=== PATIENT | male | born 1965 | race African-American/Black ===

== ENCOUNTER 2016-11-11 01:16 | Emergency (ER) | payer OTHER ==
[2016-11-11 02:22] LABS: Hematocrit 37 % (42-52); Hemoglobin 12.1 g/dl (14.0-18.0); Mean Corpuscular HGB Conc 33 g/dl (31-36); Mean Corpuscular Hemoglobin 30 pg (27-31); Mean Corpuscular Volume 91 fL (80-94); Mean Platelet Volume 8 um3 (7.4-10.4); Red Blood Count 4.06 10^6/ul (4.0-5.4); Red Cell Distribution Width 14 % (10.5-15); White Blood Count 11.7 10^3/ul (3.5-10.8)
[2016-11-11 02:34] LABS: Albumin 3.5 g/dL (3.2-5.2); BUN/Creatinine Ratio 14.4 (8-20); C Reactive Protein 244.52 mg/L (< 5.00); Calcium 8.9 mg/dL (8.6-10.3); EGFR African American 104.9 (>60); EGFR Non-African American 81.6 (>60); Globulin 4.4 g/dL (2-4); Potassium 3.6 mmol/L (3.5-5.0); Total Bilirubin 0.8 mg/dL (0.2-1.0); Total Protein 7.9 g/dL (6.4-8.9)
--- NOTE | 2016-11-11 02:53 | ED ---
Andrey Philippe Alok, scribed for Deo Ivey MD on 11/11/16 at 0217 . Lower Extremity - HPI Summary HPI Summary: 51 y/o male presents to the ED with edema in his RLE. Pt states that his RLE condition began as just erythema last week while running and has progressed to edema since. Pt report states he was given the antibiotics Bactrim and Keflex 5 days ago with no alleviation. Pt denies experiencing any scratches to his RLE and provides no other PMHx at this time. - History of Current Complaint Chief Complaint: EDExtremityLower Stated Complaint: POSS RIGHT LEG INFECTION Time Seen by Provider: 11/11/16 01:42 Hx Obtained From: Patient Onset of Pain: Days Onset/Duration: Worse Since - Bactrim and Keflex 5 days ago Severity Initially: Moderate Severity Currently: Moderate Pain Intensity: 10 Pain Scale Used: 0-10 Numeric Timing: Constant, Lasting Days Location: Is Discrete @ - RLE Associated Signs And Symptoms: Positive: Swelling, Redness Alleviating Factor(s): Nothing - Allergies/Home Medications Allergies/Adverse Reactions: Allergies Allergy/AdvReac Type Severity Reaction Status Date / Time Aspirin Allergy Rash Verified 11/11/16 02:20 Penicillins [PCN] Allergy Rash Verified 11/11/16 01:25 Home Medications: Home Medications Aripiprazole [Abilify] 5 mg PO BEDTIME 11/11/16 [History Confirmed 11/11/16] Citalopram Hydrobromide [Celexa] 20 mg PO BEDTIME 11/11/16 [History Confirmed ] Furosemide [Lasix] 20 mg PO TID 11/11/16 [History Confirmed 11/11/16] HydrOXYzine PAMOATE* [Vistaril CAP*] 100 mg PO BEDTIME 11/11/16 [History Confirmed 11/11/16] Lisinopril [Lisinopril 40 MG-] 40 mg PO DAILY 11/11/16 [History Confirmed ] Omeprazole [Prilosec] 20 mg PO DAILY 11/11/16 [History Confirmed 11/11/16] PMH/Surg Hx/FS Hx/Imm Hx Cardiovascular History: Reports: Hx Hypercholesterolemia, Hx Hypertension Respiratory History: Reports: Hx Asthma Musculoskeletal History: Reports: Hx Arthritis, Hx Gout, Hx Tendonitis Infectious Disease History: No Infectious Disease History: Denies: Traveled Outside the [place] in Last 30 Days - Family History Known Family History: Positive: Hypertension - Social History Lives: Snf - Inmate Review of Systems Negative: Fever Positive: Edema - RLE Positive: Other - Erythema RLE All Other Systems Reviewed And Are Negative: Yes Physical Exam Triage Information Reviewed: Yes Vital Signs On Initial Exam: Initial Vitals Temp Pulse Resp BP Pulse Ox 96.2 F 66 20 121/84 97 11/11/16 01:22 11/11/16 01:22 11/11/16 01:22 11/11/16 01:22 11/11/16 01:22 Vital Signs Reviewed: Yes Appearance: Positive: Well-Appearing, No Pain Distress Skin: Positive: Warm Head/Face: Positive: Normal Head/Face Inspection ENT: Positive: Normal ENT inspection Neck: Positive: Supple Respiratory/Lung Sounds: Positive: Breath Sounds Present Cardiovascular: Positive: RRR Abdomen Description: Positive: Nontender, Soft Musculoskeletal: Positive: Other - rle warm erythgematous, non tender, no amara' s Neurological: Positive: Sensory/Motor Intact, Alert, Oriented to Person Place, Time Psychiatric: Positive: Affect/Mood Appropriate Diagnostics - Vital Signs Vital Signs Temp Pulse Resp BP Pulse Ox 11/11/16 01:27 96.2 F 66 20 121/84 97 11/11/16 01:22 96.2 F 66 20 121/84 97 - Laboratory Lab Results: Lab Results 11/11/16 11/11/16 11/11/16 Range/Units 02:00 02:00 02:00 WBC 11.7 H (3.5-10.8) 10^3/ul RBC 4.06 (4.0-5.4) 10^6/ul Hgb 12.1 L (14.0-18.0) g/dl Hct 37 L (42-52) % MCV 91 (80-94) fL MCH 30 (27-31) pg MCHC 33 (31-36) g/dl RDW 14 (10.5-15) % Plt Count 418 (150-450) 10^3/ul MPV 8 (7.4-10.4) um3 Neut % (Auto) 81.0 (38-83) % Lymph % (Auto) 7.9 L (25-47) % [place] % (Auto) 7.2 (1-9) % Eos % (Auto) 2.7 (0-6) % Baso % (Auto) 1.2 (0-2) % Absolute Neuts (auto) 9.5 H (1.5-7.7) 10^3/ul Absolute Lymphs (auto) 0.9 L (1.0-4.8) 10^3/ul Absolute Monos (auto) 0.8 (0-0.8) 10^3/ul Absolute Eos (auto) 0.3 (0-0.6) 10^3/ul Absolute Basos (auto) 0.1 (0-0.2) 10^3/ul Absolute Nucleated RBC 0 10^3/ul Nucleated RBC % 0 D-Dimer, Quantitative < 200 (Less Than 230) ng/mL Sodium 136 (133-145) mmol/L Potassium 3.6 (3.5-5.0) mmol/L Chloride 102 (101-111) mmol/L Carbon Dioxide 24 (22-32) mmol/L Anion Gap 10 (2-11) mmol/L BUN 14 (6-24) mg/dL Creatinine 0.97 (0.67-1.17) mg/dL Est GFR ( Amer) 104.9 (>60) Est GFR (Non-Af Amer) 81.6 (>60) BUN/Creatinine Ratio 14.4 (8-20) Glucose 98 (70-100) mg/dL Lactic Acid (0.5-2.0) mmol/L Calcium 8.9 (8.6-10.3) mg/dL Total Bilirubin 0.80 (0.2-1.0) mg/dL AST 50 H (13-39) U/L ALT 69 H (7-52) U/L Alkaline Phosphatase 65 (34-104) U/L C-Reactive Protein 244.52 H (< 5.00) mg/L Total Protein 7.9 (6.4-8.9) g/dL Albumin 3.5 (3.2-5.2) g/dL Globulin 4.4 H (2-4) g/dL Albumin/Globulin Ratio 0.8 L (1-3) 11/11/16 Range/Units 02:00 WBC (3.5-10.8) 10^3/ul RBC (4.0-5.4) 10^6/ul Hgb (14.0-18.0) g/dl Hct (42-52) % MCV (80-94) fL MCH (27-31) pg MCHC (31-36) g/dl RDW (10.5-15) % Plt Count (150-450) 10^3/ul MPV (7.4-10.4) um3 Neut % (Auto) (38-83) % Lymph % (Auto) (25-47) % [place] % (Auto) (1-9) % Eos % (Auto) (0-6) % Baso % (Auto) (0-2) % Absolute Neuts (auto) (1.5-7.7) 10^3/ul Absolute Lymphs (auto) (1.0-4.8) 10^3/ul Absolute Monos (auto) (0-0.8) 10^3/ul Absolute Eos (auto) (0-0.6) 10^3/ul Absolute Basos (auto) (0-0.2) 10^3/ul Absolute Nucleated RBC 10^3/ul Nucleated RBC % D-Dimer, Quantitative (Less Than 230) ng/mL Sodium (133-145) mmol/L Potassium (3.5-5.0) mmol/L Chloride (101-111) mmol/L Carbon Dioxide (22-32) mmol/L Anion Gap (2-11) mmol/L BUN (6-24) mg/dL Creatinine (0.67-1.17) mg/dL Est GFR ( Amer) (>60) Est GFR (Non-Af Amer) (>60) BUN/Creatinine Ratio (8-20) Glucose (70-100) mg/dL Lactic Acid 0.8 (0.5-2.0) mmol/L Calcium (8.6-10.3) mg/dL Total Bilirubin (0.2-1.0) mg/dL AST (13-39) U/L ALT (7-52) U/L Alkaline Phosphatase (34-104) U/L C-Reactive Protein (< 5.00) mg/L Total Protein (6.4-8.9) g/dL Albumin (3.2-5.2) g/dL Globulin (2-4) g/dL Albumin/Globulin Ratio (1-3) Result Diagrams: 11/11/16 02:00 11/11/16 02:00 Lab Statement: Any lab studies that have been ordered have been reviewed, and results considered in the medical decision making process. Re-Evaluation - Re-Evaluation First Eval Re-Evaluation Time: 02:54 Change: Improved Lower Extremity Course/Dx - Diagnoses Provider Diagnoses: Cellulitis Discharge - Discharge Plan Condition: Stable Disposition: LAW ENFORCEMENT/COURT Patient Education Materials: Cellulitis (ED) Referrals: Loree LENZ,Cy Nielsen [Primary Care Provider] - Additional Instructions: Please continue present treatment. The documentation as recorded by the Andrey cox Alok accurately reflects the service I personally performed and the decisions made by , Deo Ivey MD.
[2016-11-11 03:45] VITALS: BP 144/84
== END 2016-11-11 03:04 ==
LOC: ED 01:16
DX: L03.115 Cellulitis of right lower limb (principal); R60.9 Edema, unspecified
CPT/HCPCS: 36415; 80053; 83605; 85025; 85379; 86140; 99283

== ENCOUNTER 2016-11-20 15:42 | Inpatient (IN) | payer OTHER ==
--- NOTE | 2016-11-20 17:38 | RAD ---
Indication: Right leg edema and swelling. Duplex Doppler sonography of the deep venous system of the right lower extremity deep venous system was performed. Bilaterally the common femoral veins appear patent and compressible. Right proximal greater saphenous vein, proximal deep femoral vein, femoral vein, popliteal vein, posterior tibial veins and peroneal veins appear patent and compressible. Evaluation of the calf vessels is limited due to inability of patient to tolerate compression. Lymph nodes noted in the right inguinal region measuring up to 4.1 x 1.1 x 1.4 cm. These appear hyperplastic. IMPRESSION: NO EVIDENCE OF DEEP VENOUS THROMBOSIS IS IDENTIFIED.
[2016-11-20 17:42] LABS: Hematocrit 38 % (42-52); Hemoglobin 12.7 g/dl (14.0-18.0); Mean Corpuscular HGB Conc 33 g/dl (31-36); Mean Corpuscular Hemoglobin 30 pg (27-31); Mean Corpuscular Volume 91 fL (80-94); Mean Platelet Volume 7 um3 (7.4-10.4); Red Cell Distribution Width 14 % (10.5-15); White Blood Count 7.2 10^3/ul (3.5-10.8)
[2016-11-20 18:07] LABS: Albumin 3.9 g/dL (3.2-5.2); BUN/Creatinine Ratio 15.7 (8-20); C Reactive Protein 81.42 mg/L (< 5.00); Calcium 9.6 mg/dL (8.6-10.3); EGFR African American 92.7 (>60); EGFR Non-African American 72.1 (>60); Globulin 5.1 g/dL (2-4); Potassium 4.4 mmol/L (3.5-5.0); Total Bilirubin 0.3 mg/dL (0.2-1.0)
[2016-11-20] MEDS ORDERED: NS 0.9% 1000 ML* 1,000 ML IV ONE (18:17)
[2016-11-20] MEDS ORDERED: Ondansetron INJ* 2 MG/ML VIAL IV PRN (18:17)
[2016-11-20] MEDS ORDERED: Acetaminophen TAB* 325 MG PO PRN (18:17)
[2016-11-20] MEDS ORDERED: oxyCODONE/Acetamin 5/325 MG* TAB PO PRN (18:17)
[2016-11-20] MEDS ORDERED: cefTRIAXone(*) 1 GM in NS 0.9% 50 ML* 50 ML IVPB ONE (18:18)
--- NOTE | 2016-11-20 18:48 | ED ---
Andrey Philippe Alok, scribed for Elieser Spencer MD on 11/20/16 at 1715 . Lower Extremity - HPI Summary HPI Summary: 51 y/o male presents to the ED with right leg edema which began 1-2 weeks ago. Pt has been taking antibiotics for the edema and cellulitis with no effect. Pt also notes subjective fever on and off. Pt denies chills and SOB. Denies any dizziness or feeling like he is going to pass out. - History of Current Complaint Chief Complaint: EDExtremityLower Stated Complaint: RLE CELLULITIS Time Seen by Provider: 11/20/16 16:34 Hx Obtained From: Patient Onset/Duration: Still Present Severity Initially: Moderate Severity Currently: Moderate Pain Intensity: 8 Pain Scale Used: 0-10 Numeric Timing: Constant, Lasting Weeks Location: Is Discrete @ - RLE Associated Signs And Symptoms: Positive: Swelling, Redness, Fever Aggravating Factor(s): Nothing Alleviating Factor(s): Nothing - Allergies/Home Medications Allergies/Adverse Reactions: Allergies Allergy/AdvReac Type Severity Reaction Status Date / Time Aspirin Allergy Rash Verified 11/11/16 02:20 Penicillins [PCN] Allergy Rash Verified 11/11/16 01:25 Home Medications: Home Medications ARIPiprazole TAB* [Abilify TAB*] 5 mg PO BEDTIME 11/20/16 [History Confirmed ] Citalopram TAB* [CeleXA TAB*] 20 mg PO BEDTIME 11/20/16 [History Confirmed 11/20] Furosemide TAB* [Lasix TAB*] 20 mg PO DAILY 11/20/16 [History Confirmed 11/20/16 ] Ibuprofen TAB* [Motrin TAB* 600 MG] 600 mg PO Q8H PRN 11/20/16 [History Confirmed 11/20/16] Omeprazole CAP* [Prilosec CAP* 20 MG] 20 mg PO DAILY 11/20/16 [History Confirmed 11/20/16] Sulfamethox/Trimethoprim DS* [Bactrim DS 800/160 TAB*] 1 tab PO BID 11/20/16 [ History Confirmed 11/20/16] PMH/Surg Hx/FS Hx/Imm Hx Cardiovascular History: Reports: Hx Hypercholesterolemia, Hx Hypertension Respiratory History: Reports: Hx Asthma Musculoskeletal History: Reports: Hx Arthritis, Hx Gout, Hx Tendonitis - Immunization History Date of Tetanus Vaccine: 2017 Infectious Disease History: No Infectious Disease History: Denies: Traveled Outside the [place] in Last 30 Days - Family History Known Family History: Positive: Hypertension - Social History Alcohol Use: None Substance Use Type: Reports: None Smoking Status (MU): Former Smoker Review of Systems Positive: Fever. Negative: Chills Negative: Shortness Of Breath Positive: Edema - RLE All Other Systems Reviewed And Are Negative: Yes Physical Exam - Summary Physical Exam Summary: VITAL SIGNS: Reviewed. GENERAL: ~Patient is a well developed and nourished male who is lying comfortable in the stretcher. ~Patient is not in any acute respiratory distress. HEAD AND FACE: Normocephalic EYES: PERRLA, EOMI x 2. EARS: Hearing grossly intact. MOUTH: Oropharynx within normal limits. NECK: Supple, trachea is midline, no adenopathy, no JVD, no carotid bruit. CHEST: Symmetric, no tenderness at palpation LUNGS: Clear to auscultation bilaterally. No wheezing or crackles. CVS: Regular rate and rhythm, S1 and S2 present, no murmurs or gallops appreciated. ABDOMEN: Soft, non-tender. Bowel sounds are normal. No abdominal abnormal pulsations. EXTREMITIES: Full ROM in all major joints. RLE edema with erythemia. Right calf swelling. 19.2 cm right. 17.5 cm left. NEURO: Alert and oriented x 3. No acute neurological deficits. Speech is normal and follows commands. SKIN: Dry and warm Triage Information Reviewed: Yes Vital Signs On Initial Exam: Initial Vitals Temp Pulse Resp BP Pulse Ox 98.2 F 76 16 139/80 99 11/20/16 15:50 11/20/16 15:50 11/20/16 15:50 11/20/16 15:50 11/20/16 15:50 Vital Signs Reviewed: Yes Diagnostics - Vital Signs Vital Signs Temp Pulse Resp BP Pulse Ox 11/20/16 16:48 98.2 F 76 20 139/80 99 11/20/16 15:50 98.2 F 76 16 139/80 99 - Laboratory Lab Results: Lab Results 11/20/16 11/20/16 11/20/16 Range/Units 17:25 17:25 17:25 WBC 7.2 (3.5-10.8) 10^3/ul RBC 4.20 (4.0-5.4) 10^6/ul Hgb 12.7 L (14.0-18.0) g/dl Hct 38 L (42-52) % MCV 91 (80-94) fL MCH 30 (27-31) pg MCHC 33 (31-36) g/dl RDW 14 (10.5-15) % Plt Count 640 H D (150-450) 10^3/ul MPV 7 L (7.4-10.4) um3 Neut % (Auto) 68.7 (38-83) % Lymph % (Auto) 18.7 L (25-47) % [place] % (Auto) 6.8 (1-9) % Eos % (Auto) 4.6 (0-6) % Baso % (Auto) 1.2 (0-2) % Absolute Neuts (auto) 4.9 (1.5-7.7) 10^3/ul Absolute Lymphs (auto) 1.3 (1.0-4.8) 10^3/ul Absolute Monos (auto) 0.5 (0-0.8) 10^3/ul Absolute Eos (auto) 0.3 (0-0.6) 10^3/ul Absolute Basos (auto) 0.1 (0-0.2) 10^3/ul Absolute Nucleated RBC 0.01 10^3/ul Nucleated RBC % 0.1 Sodium 135 (133-145) mmol/L Potassium 4.4 (3.5-5.0) mmol/L Chloride 99 L (101-111) mmol/L Carbon Dioxide 27 (22-32) mmol/L Anion Gap 9 (2-11) mmol/L BUN 17 (6-24) mg/dL Creatinine 1.08 (0.67-1.17) mg/dL Est GFR ( Amer) 92.7 (>60) Est GFR (Non-Af Amer) 72.1 (>60) BUN/Creatinine Ratio 15.7 (8-20) Glucose 91 (70-100) mg/dL Lactic Acid 1.5 (0.5-2.0) mmol/L Calcium 9.6 (8.6-10.3) mg/dL Total Bilirubin 0.30 (0.2-1.0) mg/dL AST 43 H (13-39) U/L ALT 131 H (7-52) U/L Alkaline Phosphatase 98 (34-104) U/L C-Reactive Protein 81.42 H (< 5.00) mg/L Total Protein 9.0 H (6.4-8.9) g/dL Albumin 3.9 (3.2-5.2) g/dL Globulin 5.1 H (2-4) g/dL Albumin/Globulin Ratio 0.8 L (1-3) Result Diagrams: 11/20/16 17:25 11/20/16 17:25 Lab Statement: Any lab studies that have been ordered have been reviewed, and results considered in the medical decision making process. - Additional Comments Diagnostic Additional Comments: Lower Extremity Veins Right US - IMPRESSION: NO EVIDENCE OF DEEP VENOUS THROMBOSIS IS IDENTIFIED. Lower Extremity Course/Dx - Course Course Of Treatment: 51 y/o male presents to the ED with right leg edema which began 1-2 weeks ago. Pt has been taking antibiotics for the edema and cellulitis with no effect. Pt also notes subjective fever on and off. Pt denies chills and SOB. Denies any dizziness or feeling like he is going to pass out. Assessment/Plan: Blood work within nml limits except for slight anemia, chloride 99 L, CRP 81.4 H. Right lower extremity vein US shows no DVT. Pt was given Rocephin IV antibiotics. Spoke with Hospitalist Dr. Salas. Since pt has failed to benefit from PO outpatient antibiotics we believe pt will benefit from inpatient IV antibiotics. Pt is currently A + O x 3 and hemodynamically stable. - Diagnoses Differential Diagnosis/HQI/PQRI: Positive: Bursitis, Cellulitis, DVT, Infection , Sprain, Strain Provider Diagnoses: Cellulitis of right lower extremity - Physician Notifications Discussed Care of Patient With: Dr. Salas (Hospitalist) @ 182 - Will admit pt Discharge - Discharge Plan Condition: Stable Disposition: ADMITTED TO [facility] Referrals: Loree LENZ,Cy Nielsen [Primary Care Provider] - The documentation as recorded by the Andrey cox Alok accurately reflects the service I personally performed and the decisions made by me, Elieser Spencer MD.
[2016-11-20 21:03] LABS: Urine Bacteria Absent (Absent); Urine Bilirubin Negative (Negative); Urine Glucose Negative (Negative); Urine Nitrite Negative (Negative)
[2016-11-20] MEDS: Heparin VIAL(*) 5000 UNITS/ML VIAL (FIVE THOUSAND) SUBCUT SCH (21:31)
[2016-11-20] MEDS ORDERED: Albuterol HFA INHALER* 8 gm MDI INH PRN (21:58)
[2016-11-20] MEDS ORDERED: hydrOXYzine HCL TAB* 50 MG PO PRN (22:00)
[2016-11-20] MEDS: Citalopram TAB* 20 MG PO SCH (22:18)
[2016-11-20] MEDS: ARIPiprazole TAB* 5 MG PO SCH (22:18)
[2016-11-20] MEDS: levETIRAcetam TAB* 500 MG PO SCH (22:19)
[2016-11-20] MEDS: Ibuprofen TAB* 600 MG PO PRN (22:23)
[2016-11-21] MEDS: Heparin VIAL(*) 5000 UNITS/ML VIAL (FIVE THOUSAND) SUBCUT SCH ×3 (05:38→21:13)
[2016-11-21] MEDS: Ibuprofen TAB* 600 MG PO PRN ×2 (07:53→17:35)
[2016-11-21] MEDS: Omeprazole CAP* 20 MG PO SCH (07:53)
[2016-11-21] MEDS: levETIRAcetam TAB* 500 MG PO SCH ×2 (07:53→20:11)
[2016-11-21] MEDS: Atorvastatin* 10 MG TAB PO SCH (07:54)
[2016-11-21] MEDS ORDERED: Influenza VAC *QUAD* 2016-17* 0.5 ML SYRINGE IM ONE (09:00)
[2016-11-21] MEDS ORDERED: Pneumococcal Vac Polyvalent* 0.5 ML VIAL IM ONE (09:00)
[2016-11-21] MEDS: ceFAZolin 1 GM in Dextrose (*) 1 GM/50 ML BAG IVPB SCH ×3 (10:30→21:13)
[2016-11-21] MEDS ORDERED: Furosemide IV* 10 MG/ML VIAL (40 MG) IV ONE (12:23)
--- NOTE | 2016-11-21 12:27 | PN ---
Subjective Date of Service: 11/21/16 Interval History: . leg less painful than yesterday - but still difficulty with any walking. + hot and red - though darker red today. fluids ongoing...perhaps he actually needs lasix Family History: Unchanged from Admission Social History: Unchanged from Admission Past Medical History: Unchanged from Admission Objective Active Medications: . Acetaminophen (Tylenol Tab*) 650 mg PO Q4H PRN PRN Reason: FEVER/PAIN Albuterol (Ventolin Hfa Inhaler*) 2 puff INH Q6H PRN PRN Reason: SOB/WHEEZING Aripiprazole (Abilify Tab*) 5 mg PO BEDTIME [facility] Last Admin: 11/20/16 22:18 Dose: 5 mg Atorvastatin Calcium (Lipitor*) 10 mg PO DAILY [facility] Last Admin: 11/21/16 07:54 Dose: 10 mg Citalopram Hydrobromide (Celexa Tab*) 20 mg PO BEDTIME [facility] Last Admin: 11/20/16 22:18 Dose: 20 mg Heparin Sodium (Porcine) (Heparin Vial(*)) 5,000 units SUBCUT Q8HR [facility] Last Admin: 11/21/16 05:38 Dose: 5,000 units Hydroxyzine HCl (Atarax Tab*) 100 mg PO BEDTIME PRN PRN Reason: SLEEP Cefazolin Sodium/Dextrose (Kefzol 1 Gm In Dextrose Duplex (*)) 1 gm in 50 mls @ 200 mls/hr IVPB Q6H [facility] Last Admin: 11/21/16 10:30 Dose: Not Given Ibuprofen (Motrin Tab*) 600 mg PO Q8H PRN PRN Reason: PAIN Last Admin: 11/21/16 07:53 Dose: 600 mg Levetiracetam (Keppra Tab*) 500 mg PO BID [facility] Last Admin: 11/21/16 07:53 Dose: 500 mg Mometasone Furoate (Asmanex 220 Mcg Mdi *) 1 puff INH QPM [facility] Omeprazole (Prilosec Cap*) 20 mg PO DAILY [facility] Last Admin: 11/21/16 07:53 Dose: 20 mg Ondansetron HCl (Zofran Inj*) 4 mg IV Q4H PRN PRN Reason: NAUSEA/VOMITING Oxycodone/Acetaminophen (Percocet 5/325 Tab*) 1 tab PO Q4H PRN PRN Reason: Pain . Vital Signs 11/20/16 11/20/16 11/20/16 19:38 19:41 23:39 Temperature 98.2 F 98.2 F 98.3 F Pulse Rate 83 83 92 Respiratory 16 16 17 Rate Blood Pressure 162/91 162/91 149/82 (mmHg) O2 Sat by Pulse 100 100 99 Oximetry 11/21/16 11/21/16 11/21/16 03:58 07:06 07:10 Temperature 98.2 F 98.3 F Pulse Rate 75 62 Respiratory 16 18 18 Rate Blood Pressure 119/75 109/73 (mmHg) O2 Sat by Pulse 98 99 Oximetry Oxygen Devices in Use Now: None Appearance: obese - middle aged man Eyes: No Scleral Icterus Ears/Nose/Mouth/Throat: Clear Oropharnyx Neck: Trachea Midline Respiratory: Symmetrical Chest Expansion and Respiratory Effort Cardiovascular: NL Sounds; No Murmurs; No JVD Abdominal: NL Sounds; No Tenderness; No Distention Extremities: - - RLE with demarkated area of cellulitis spanning from below the R knee to the R ankle - generally sparing the foot Skin: No Rash or Ulcers Neurological: Alert and Oriented x 3 Lines/Tubes/Other Access: Clean, Dry and Intact Peripheral IV Nutrition: Taking PO's Result Diagrams: 11/20/16 17:25 11/20/16 17:25 Additional Lab and Data: . Assess/Plan/Problems-Billing . Assessment: 51 yo man with recurrent RLE cellulitis -- failed oral antibiotics and would definitely benefit from IV antibiotics and fluid management. . - Patient Problems (1) Cellulitis of right lower extremity without foot Current Visit: Yes Status: Acute Priority: High Code(s): L03.115 - CELLULITIS OF RIGHT LOWER LIMB Comment: - Ancef 1 g IV Q6 - IV lasix for edema - elevation - Wrapping - pain control - neg for DVT (2) Asthma Current Visit: Yes Status: Acute Code(s): J45.909 - UNSPECIFIED ASTHMA, UNCOMPLICATED (3) Hypertension Current Visit: Yes Status: Chronic Priority: Medium Code(s): I10 - ESSENTIAL (PRIMARY) HYPERTENSION Comment: - controlled - continue o/p meds
[2016-11-21] MEDS ORDERED: Mometasone 220 MCG MDI INH SCH (18:00)
[2016-11-21] MEDS ORDERED: ceFAZolin 1 GM in Dextrose (*) 1 GM/50 ML BAG IVPB SCH (20:00)
[2016-11-21] MEDS: ARIPiprazole TAB* 5 MG PO SCH (20:11)
[2016-11-21] MEDS: Citalopram TAB* 20 MG PO SCH (20:11)
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
[2016-11-22] MEDS: ceFAZolin 1 GM in Dextrose (*) 1 GM/50 ML BAG IVPB SCH ×2 (03:57→09:39)
[2016-11-22] MEDS: Heparin VIAL(*) 5000 UNITS/ML VIAL (FIVE THOUSAND) SUBCUT SCH (05:02)
[2016-11-22 06:40] LABS: Hematocrit 35 % (42-52); Hemoglobin 11.4 g/dl (14.0-18.0); Mean Corpuscular HGB Conc 33 g/dl (31-36); Mean Corpuscular Hemoglobin 30 pg (27-31); Mean Corpuscular Volume 91 fL (80-94); Mean Platelet Volume 7 um3 (7.4-10.4); Red Blood Count 3.81 10^6/ul (4.0-5.4); Red Cell Distribution Width 14 % (10.5-15); White Blood Count 7.2 10^3/ul (3.5-10.8)
[2016-11-22 06:51] LABS: BUN/Creatinine Ratio 15.4 (8-20); Calcium 8.7 mg/dL (8.6-10.3); EGFR Non-African American 104.9 (>60); Potassium 3.9 mmol/L (3.5-5.0)
[2016-11-22 07:38] VITALS: BP 138/84
[2016-11-22] MEDS: Atorvastatin* 10 MG TAB PO SCH (07:51)
[2016-11-22] MEDS: Omeprazole CAP* 20 MG PO SCH (07:51)
[2016-11-22] MEDS: levETIRAcetam TAB* 500 MG PO SCH (07:51)
[2016-11-22] MEDS ORDERED: Potassium Chloride LIQUID* 20 MEQ PACKET PO ONE (09:43)
[2016-11-22] MEDS: Ibuprofen TAB* 600 MG PO PRN (11:22)
--- NOTE | 2016-11-22 19:59 | PN ---
Hospitalist Progress Note . HOSPITALIST DISCHARGE NOTE: See dc instructions and summary by me. Patient stable for dc dc instructions reviewed with the patient at the bedside. DC patient home today.
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
== END 2016-11-22 12:50 | DRG 383 ==
LOC: EEVIPCON 15:42 → ED 15:42 → MED 18:17
PROVIDERS: ADMIT Internal Medicine; ATTEND Internal Medicine
DX: L03.115 Cellulitis of right lower limb (principal); I10 Essential (primary) hypertension; B95.61 Methicillin susceptible Staphylococcus aureus infection as the cause of diseases classified elsewhere; R60.9 Edema, unspecified; E78.00 Pure hypercholesterolemia, unspecified; J45.909 Unspecified asthma, uncomplicated; M19.90 Unspecified osteoarthritis, unspecified site; M10.9 Gout, unspecified; G40.909 Epilepsy, unspecified, not intractable, without status epilepticus; K21.9 Gastro-esophageal reflux disease without esophagitis; F32.9 Major depressive disorder, single episode, unspecified; Z79.1 Long term (current) use of non-steroidal anti-inflammatories (NSAID); Z79.899 Other long term (current) drug therapy; Z88.6 Allergy status to analgesic agent; Z88.0 Allergy status to penicillin; Z82.49 Family history of ischemic heart disease and other diseases of the circulatory system
CPT/HCPCS: 36415; 80048; 80053; 81003; 81015; 83605; 85025; 86140; 86141; 87040; 87086; 90686; 90732; 94640; 94760; A9270-GY; J0690; J0696; J1644; J1940